=== PATIENT | male | born 1950 | race Caucasian/White ===

== ENCOUNTER 2024-11-21 11:02 | Outpatient (CLI) | payer MEDICARE, SELFPAY | END 2024-11-21 11:03 | disposition home or self-care (01) | LOC: NFLDREF 11-26 21:20 | PROVIDERS: Visit Provider Family Medicine | DX: Z13.6 Encounter for screening for cardiovascular disorders (principal); Z12.5 Encounter for screening for malignant neoplasm of prostate | CPT/HCPCS: 80061; G0103 ==